=== PATIENT | male | born 1935 | race Caucasian/White ===

== ENCOUNTER 2016-11-04 16:06 | Emergency (ER) | payer MEDICARE, OTHER ==
[~2016-11-04] VITALS: Ht 180.3 cm; Wt 68.0 kg
[2016-11-04 16:11] VITALS: BP 170/89; PULSE 111; RESP 16; TEMP 97.6; O2SAT 94
[2016-11-04] MEDS ORDERED: RISP0.5T2 PO (16:31)
[2016-11-04] MEDS ORDERED: METF500T PO (16:31)
--- NOTE | 2016-11-04 16:49 | PD ---
HPI Chief Complaint: Psychiatric Symptoms Time Seen by Provider: 16:49 Travel History International Travel<30 days: No Contact w/Intl Traveler<30days: No Traveled to known affect area: No History of Present Illness HPI 81-year-old male with history of Alzheimer disease and diabetes presents to the emergency department under Leon act for psychiatric evaluation. Patient is speaking East [place]orese and Greek and not making a lot of sense. I have attempted interpreters, 2 through our [employer] service, both who informed me they are unable to decipher what the patient is saying. Per the Leon act, patient and his got into an argument because he did not want to go to the physician Patient has been increasingly agitated and confused. He was wandering in the street and not properly with police. He was speaking both Greek and [place]orese. His only speaks Greek so the patient is limited Greek however is not demonstrating this. No other symptoms to report at this time. PFSH Past Medical History Alzheimer's Disease: Yes Diabetes: Yes Social History Alcohol Use: No Tobacco Use: No Substance Use: No Allergies-Medications (Allergen,Severity, Reaction): Coded Allergies: No Known Allergies (Unverified , 11/04/16) Reported Meds & Prescriptions Reported Meds & Active Scripts Active Reported Metformin (Metformin HCl) 500 Mg Tab 750 Mg PO BIDPC With meals Risperidone 0.5 Mg Tab 0.5 Mg PO Q12HR Review of Systems Except as stated in HPI: all other systems reviewed are Neg Physical Exam Narrative GENERAL: Well-nourished elderly male patient, sitting up in bed,, speaking Greek and [place]se,, in no acute distress SKIN: Warm and dry. HEAD: Atraumatic. Normocephalic. EYES: Pupils equal and round. No scleral icterus. No injection or drainage. ENT: No nasal bleeding or discharge. Mucous membranes pink and moist. NECK: Trachea midline. No JVD. CARDIOVASCULAR: Tachycardic rate and rhythm. No murmur appreciated. RESPIRATORY: No accessory muscle use. Diminished to auscultation. Breath sounds equal bilaterally. GASTROINTESTINAL: Abdomen soft, non-tender, nondistended. Hepatic and splenic margins not palpable. MUSCULOSKELETAL: No obvious deformities. No clubbing. No cyanosis. No edema. NEUROLOGICAL: Awake and alert. No obvious cranial nerve deficits. Motor grossly within normal limits. Data Data Last Documented VS Vital Signs Date Time Temp Pulse Resp B/P Pulse Ox O2 Delivery O2 Flow Rate FiO2 11/04/16 16:11 97.6 111 16 170/89 94 Room Air Orders Complete Blood Count With Diff (11/04/16 16:34) Comprehensive Metabolic Panel (11/04/16 16:34) Psych Screen (11/04/16 16:34) Urinalysis - C+S If Indicated (11/04/16 16:49) Drug Screen, Random Urine (11/04/16 16:49) Alcohol (Ethanol) (11/04/16 16:49) Chest, Single Ap (11/04/16 ) Labs Laboratory Tests Test 11/04/16 11/04/16 16:01 18:04 White Blood Count 6.5 TH/MM3 Red Blood Count 4.58 MIL/MM3 Hemoglobin 13.9 GM/DL Hematocrit 40.7 % Mean Corpuscular Volume 88.9 FL Mean Corpuscular Hemoglobin 30.5 PG Mean Corpuscular Hemoglobin 34.3 % Concent Red Cell Distribution Width 13.8 % Platelet Count 196 TH/MM3 Mean Platelet Volume 9.2 FL Neutrophils (%) (Auto) 81.7 % Lymphocytes (%) (Auto) 10.0 % Monocytes (%) (Auto) 7.5 % Eosinophils (%) (Auto) 0.4 % Basophils (%) (Auto) 0.4 % Neutrophils # (Auto) 5.3 TH/MM3 Lymphocytes # (Auto) 0.6 TH/MM3 Monocytes # (Auto) 0.5 TH/MM3 Eosinophils # (Auto) 0.0 TH/MM3 Basophils # (Auto) 0.0 TH/MM3 CBC Comment DIFF FINAL Differential Comment Sodium Level 139 MEQ/L Potassium Level 4.4 MEQ/L Chloride Level 102 MEQ/L Carbon Dioxide Level 24.4 MEQ/L Anion Gap 13 MEQ/L Blood Urea Nitrogen 19 MG/DL Creatinine 1.00 MG/DL Estimat Glomerular Filtration 72 ML/MIN Rate Random Glucose 197 MG/DL Calcium Level 9.3 MG/DL Total Bilirubin 0.5 MG/DL Aspartate Amino Transf 15 U/L (AST/SGOT) Alanine Aminotransferase 23 U/L (ALT/SGPT) Alkaline Phosphatase 34 U/L Total Protein 7.8 GM/DL Albumin 4.3 GM/DL Ethyl Alcohol Level LESS THAN 3 MG/DL Urine Color YELLOW Urine Turbidity CLEAR Urine pH 6.0 Urine Specific [place] 1.014 Urine Protein NEG mg/dL Urine Glucose (UA) 300 mg/dL Urine Ketones TRACE mg/dL Urine Occult Blood NEG Urine Nitrite NEG Urine Bilirubin NEG Urine Urobilinogen LESS THAN 2.0 MG/DL Urine Leukocyte Esterase NEG Urine RBC 1 /hpf Urine WBC LESS THAN 1 /hpf Microscopic Urinalysis Comment CULT NOT INDICATED Urine Opiates Screen NEG Urine Barbiturates Screen NEG Urine Amphetamines Screen NEG Urine Benzodiazepines Screen NEG Urine Cocaine Screen NEG Urine Cannabinoids Screen NEG MDM Medical Decision Making Medical Screen Exam Complete: Yes Emergency Medical Condition: Yes Medical Record Reviewed: Yes Differential Diagnosis Acute psychosis versus Alzheimer disease versus dementia versus electrolyte abnormality Narrative Course 1658 attempts to speak with patient via sole skiver on a phone was unsuccessful. Water Quality Manager informs us that the patient is pain does not make sense that she cannot adequately interpret what he is saying. 81-year-old male presents to emergency department under a Leon act for psychiatric evaluation. Patient is speaking both [place]se and Greek. I am told that his is Welsh and speaks only Greek so the patient does understand Greek regularly. He seems to start to answer my questions appropriately but then transitions to [place]se. He is cooperative. We have been unsuccessful with interpretation services. CBC and CMP are without acute concern. Toxicology is negative. Glucosuria 300, trace ketones. Patient initially tachycardic and slightly agitated. Reassessment, heart rate is 89 bpm. He is calm and cooperative. He is medically cleared to undergo psychiatric screening for further evaluation and disposition. Mental health screening discussed with the patient. Psychiatric screen ordered. Diagnosis Primary Impression: Agitation Additional Impressions: Dementia Qualified Code: G30.8 - Alzheimer's dementia with behavioral disturbance, unspecified timing of dementia onset Medical clearance for psychiatric admission Patient Instructions: General Instructions Departure Forms: Tests/Procedures Condition: Stable MalikLinette poolvernon GRIMM Nov 04, 2016 16:49
[2016-11-04 17:02] LABS: AUTOMATED NEUTROPHIL # 5.3 TH/MM3 (1.8-7.7); BASOPHIL % 0.4 % (0.0-2.0); EOSINOPHIL % 0.4 % (0.0-4.0); HEMATOCRIT 40.7 % (39.0-51.0); HEMO FLAGS DIFF FINAL; LYMPHOCYTE # 0.6 TH/MM3 (1.0-4.8); MEAN CELL VOLUME 88.9 FL (80.0-100.0); MEAN CORPUSCULAR HEMOGLOBIN 30.5 PG (27.0-34.0); MEAN CORPUSCULAR HGB CONC 34.3 % (32.0-36.0); MONO % 7.5 % (0.0-8.0); NEUT % 81.7 % (16.0-70.0); PLATELET COUNT 196 TH/MM3 (150-450); RED BLOOD COUNT 4.58 MIL/MM3 (4.50-5.90); RED CELL DISTRIBUTION WIDTH 13.8 % (11.6-17.2); WHITE BLOOD COUNT 6.5 TH/MM3 (4.0-11.0)
[2016-11-04 17:20] LABS: ALT (GPT) 23 U/L (12-78); ANION GAP 13 MEQ/L (5-15); AST (GOT) 15 U/L (15-37); BICARBONATE 24.4 MEQ/L (21.0-32.0); BLOOD UREA NITROGEN 19 MG/DL (7-18); CHLORIDE 102 MEQ/L (98-107); GLOMERULAR FILTRATION RATE 72 ML/MIN (>89); POTASSIUM 4.4 MEQ/L (3.5-5.1); SODIUM (NA) 139 MEQ/L (136-145)
[2016-11-04 17:22] LABS: ALKALINE PHOSPHATASE 34 U/L (45-117); TOTAL BILIRUBIN ADULT 0.5 MG/DL (0.2-1.0)
--- NOTE | 2016-11-04 17:33 | RADRPT ---
EXAM DATE/TIME: 11/04/2016 17:16 [facility] COMPARISON: No previous studies available for comparison. INDICATIONS : Short of breath. MEDICAL HISTORY : None. SURGICAL HISTORY : None. ENCOUNTER: Initial ACUITY: 1 day PAIN SCORE: 0/10 LOCATION: Bilateral chest FINDINGS: A single view of the chest demonstrates the lungs to be symmetrically aerated without evidence of mas s, infiltrate or effusion. The cardiomediastinal contours are unremarkable. Osseous structures are intact. CONCLUSION: Normal examination. Ramon Morales MD on November 04, 2016 at 17:31 Board Certified Radiologist. This report was verified electronically.
[2016-11-04 18:26] LABS: BLOOD, URINE NEG (NEG); COMMENT (UR) CULT NOT INDICATED; CULTURE IF INDICATED CULT NOT INDICATED; GLUCOSE,URINE 300 mg/dL (NEG); KETONE, URINE TRACE mg/dL (NEG); NITRITE,URINE NEG (NEG); URINE COLOR YELLOW (YELLW/STRAW)
[2016-11-04 18:40] LABS: AMPHETAMINE, URINE NEG (NEG); BARBITURATES, URINE NEG (NEG); COCAINE, URINE NEG (NEG)
[2016-11-04 21:00] VITALS: BP 178/92; PULSE 93; RESP 16; O2SAT 98
[2016-11-05 06:17] VITALS: BP 158/82; PULSE 71; RESP 20; O2SAT 98
--- NOTE | 2016-11-05 10:49 | PD ---
History of Present Illness Chief Complaint: Psychiatric Symptoms Time Seen by Provider: 10:45 Travel History International Travel<30 Days: No Contact w/Intl Traveler<30days: No Known affected area: No History of Present Illness: History of Present Illness HPI 81-year-old male with history of Alzheimer disease who was diagnosed in 2014 who presents to the emergency department under Leon act for psychiatric evaluation. As per the report the [police were called to assist in a public incident. The patient's called the police as he was refusing to go to the doctor's appointment that had been scheduled and began to get a little violent. She reported that he walked out of their home and began to wander a round. He was reportedly walking in the middle of the road. Ed provider was unable to communicate with the patient as he was speaking another language. Attempts to interview him with assistance of interpreting service failed as the interpreters were unable to decipher what he was saying. Patient is speaking Tajik and Icelandic and not making a lot of sense. Patient is seen in A pod. Sitter at bedside. Sitter reports he has been restless but not agitated. He is awake, alert and in bed. He is restless. He responds to his name called but then began to speak in another language. I was unable to engage him at all therefore clinical interview is limited. I contacted his via telephone. She reports that he was dx with dementia in 2015. The couple moved to [place] recently. For the past 2 weeks the patient has begun to demonstrate increase in his behaviors including frequent awakening at night with wandering around the house, seeing people in the closets as well as telling her he was going to leave. He has not been evaluated buy a neurologist in [place] but there is an appointment scheduled. The patient's brother who is a physician has provided medication for the patient including Risperdal. She does not believe that the medication is helping at this time. PFSH Past Medical History Alzheimer's Disease: Yes Diabetes: Yes (a1c 7.3 last checked) Patient Takes Glucophage: Yes Seizures: Yes ([facility] 10/02 thinks r/t meds -off meds now) Psychiatric History Psychiatric History Hx Psychiatric Treatment: None reported History of Inpatient Treatment: No Guns or firearms in home: No Social History Retired physician. . Lives with his . Has 3 adult children. Hx Alcohol Use: Yes (occ) Hx Tobacco Use: No Hx Substance Use: No Hx of Substance Use Treatment: No Family Psychiatric History Unable to obtain Allergies-Medications (Allergen,Severity, Reaction): Coded Allergies: No Known Allergies (Unverified , 11/04/16) Reported Meds & Prescriptions Reported Meds & Active Scripts Active Reported Metformin (Metformin HCl) 500 Mg Tab 750 Mg PO BIDPC With meals Risperidone 0.5 Mg Tab 0.5 Mg PO Q12HR Review of Systems ROS Limitations: Poor Historian Psychiatric: COMPLAINS OF: Confusion Exam Alert: Yes [place]: Person Mood: Other (restless) Affect: Other (variable) Speech: Clear, Illogical (as per . Unable to undesrstand as he speaks Tajik) Eye Contact: Normal Memory Intact: Comment (unable to tets) Hallucinations: Visual (reported by his ) Delusions: No Suicidal: Ideation (unable to asses) Homicidal: Ideation (Unable to assess.) Insight/Judgement Poor. Poor MDM Medical Decision Making Medical Record Reviewed: Yes Assessment/Plan At this time does not meet criteria for BA. Will lift. will pick him up Discussed case at length with his and have recommended the following; Melatonin 5- 10 mg po at Hs for sleep She is discussing medications changes with the patient's brother who is also a physician. recommendations include increasing Risperdal. If ineffective switching to Seroquel , and adding Ativan. Patient has appointment next Thursday with neurology instructed re home safety including alarms and locks on doors. Also instructed re [facility] and at home health care Return to hospital if any changes Orders Complete Blood Count With Diff (11/04/16 16:34) Comprehensive Metabolic Panel (11/04/16 16:34) Psych Screen (11/04/16 16:34) Urinalysis - C+S If Indicated (11/04/16 16:49) Drug Screen, Random Urine (11/04/16 16:49) Alcohol (Ethanol) (11/04/16 16:49) Chest, Single Ap (11/04/16 ) Diet Regular Basic (11/05/16 Breakfast) Results Vital Signs Date Time Temp Pulse Resp B/P Pulse Ox O2 Delivery O2 Flow Rate FiO2 11/05/16 06:17 71 20 158/82 98 11/05/16 02:25 20 11/04/16 21:00 93 16 178/92 98 Room Air 11/04/16 16:11 97.6 111 16 170/89 94 Room Air Laboratory Tests Test 11/04/16 11/04/16 16:01 18:04 White Blood Count 6.5 Red Blood Count 4.58 Hemoglobin 13.9 Hematocrit 40.7 Mean Corpuscular Volume 88.9 Mean Corpuscular Hemoglobin 30.5 Mean Corpuscular Hemoglobin 34.3 Concent Red Cell Distribution Width 13.8 Platelet Count 196 Mean Platelet Volume 9.2 Neutrophils (%) (Auto) 81.7 Lymphocytes (%) (Auto) 10.0 Monocytes (%) (Auto) 7.5 Eosinophils (%) (Auto) 0.4 Basophils (%) (Auto) 0.4 Neutrophils # (Auto) 5.3 Lymphocytes # (Auto) 0.6 Monocytes # (Auto) 0.5 Eosinophils # (Auto) 0.0 Basophils # (Auto) 0.0 CBC Comment DIFF FINAL Differential Comment Sodium Level 139 Potassium Level 4.4 Chloride Level 102 Carbon Dioxide Level 24.4 Anion Gap 13 Blood Urea Nitrogen 19 Creatinine 1.00 Estimat Glomerular Filtration 72 Rate Random Glucose 197 Calcium Level 9.3 Total Bilirubin 0.5 Aspartate Amino Transf 15 (AST/SGOT) Alanine Aminotransferase 23 (ALT/SGPT) Alkaline Phosphatase 34 Total Protein 7.8 Albumin 4.3 Ethyl Alcohol Level LESS THAN 3 Urine Color YELLOW Urine Turbidity CLEAR Urine pH 6.0 Urine Specific [place] 1.014 Urine Protein NEG Urine Glucose (UA) 300 Urine Ketones TRACE Urine Occult Blood NEG Urine Nitrite NEG Urine Bilirubin NEG Urine Urobilinogen LESS THAN 2.0 Urine Leukocyte Esterase NEG Urine RBC 1 Urine WBC LESS THAN 1 Microscopic Urinalysis Comment CULT NOT INDICATED Urine Opiates Screen NEG Urine Barbiturates Screen NEG Urine Amphetamines Screen NEG Urine Benzodiazepines Screen NEG Urine Cocaine Screen NEG Urine Cannabinoids Screen NEG Diagnosis Primary Impression: Medical clearance for psychiatric admission Additional Impression: Dementia Psychiatrically Cleared: Yes Departure Forms: Tests/Procedures Patient Instructions: General Instructions Prescriptions Quetiapine (Seroquel)25 Mg Tab25 Mg PO DIRECTED #120 TAB Ref 0 One tablet in the morning 1 tablet in the afternoon, 2 tablets before bed Prov:Kp Montez MD 11/05/16 Lorazepam 0.5 Mg Tab0.5 Mg PO Q12HR PRN (AGITATION) #14 TAB Ref 0 Prov:Kp Montez MD 11/05/16 Disposition: 01 DISCHARGE HOME Condition: Stable Problem Qualifiers Additional Impression: Dementia Qualified Code: G30.8 - Alzheimer's dementia with behavioral disturbance, unspecified timing of dementia onset Sunni Burt Nov 05, 2016 10:49
[2016-11-05] MEDS ORDERED: SERO25TA PO ×2 (15:21→15:23)
[2016-11-05] MEDS ORDERED: LORA-373 PO (15:21)
--- NOTE | 2016-11-05 15:24 | PD ---
Data Data Last Documented VS Vital Signs Date Time Temp Pulse Resp B/P Pulse Ox O2 Delivery O2 Flow Rate FiO2 11/05/16 06:17 71 20 158/82 98 11/04/16 21:00 Room Air 11/04/16 16:11 97.6 Orders Complete Blood Count With Diff (11/04/16 16:34) Comprehensive Metabolic Panel (11/04/16 16:34) Psych Screen (11/04/16 16:34) Urinalysis - C+S If Indicated (11/04/16 16:49) Drug Screen, Random Urine (11/04/16 16:49) Alcohol (Ethanol) (11/04/16 16:49) Chest, Single Ap (11/04/16 ) Diet Regular Basic (11/05/16 Breakfast) Labs Laboratory Tests Test 11/04/16 11/04/16 16:01 18:04 White Blood Count 6.5 TH/MM3 Red Blood Count 4.58 MIL/MM3 Hemoglobin 13.9 GM/DL Hematocrit 40.7 % Mean Corpuscular Volume 88.9 FL Mean Corpuscular Hemoglobin 30.5 PG Mean Corpuscular Hemoglobin 34.3 % Concent Red Cell Distribution Width 13.8 % Platelet Count 196 TH/MM3 Mean Platelet Volume 9.2 FL Neutrophils (%) (Auto) 81.7 % Lymphocytes (%) (Auto) 10.0 % Monocytes (%) (Auto) 7.5 % Eosinophils (%) (Auto) 0.4 % Basophils (%) (Auto) 0.4 % Neutrophils # (Auto) 5.3 TH/MM3 Lymphocytes # (Auto) 0.6 TH/MM3 Monocytes # (Auto) 0.5 TH/MM3 Eosinophils # (Auto) 0.0 TH/MM3 Basophils # (Auto) 0.0 TH/MM3 CBC Comment DIFF FINAL Differential Comment Sodium Level 139 MEQ/L Potassium Level 4.4 MEQ/L Chloride Level 102 MEQ/L Carbon Dioxide Level 24.4 MEQ/L Anion Gap 13 MEQ/L Blood Urea Nitrogen 19 MG/DL Creatinine 1.00 MG/DL Estimat Glomerular Filtration 72 ML/MIN Rate Random Glucose 197 MG/DL Calcium Level 9.3 MG/DL Total Bilirubin 0.5 MG/DL Aspartate Amino Transf 15 U/L (AST/SGOT) Alanine Aminotransferase 23 U/L (ALT/SGPT) Alkaline Phosphatase 34 U/L Total Protein 7.8 GM/DL Albumin 4.3 GM/DL Ethyl Alcohol Level LESS THAN 3 MG/DL Urine Color YELLOW Urine Turbidity CLEAR Urine pH 6.0 Urine Specific [place] 1.014 Urine Protein NEG mg/dL Urine Glucose (UA) 300 mg/dL Urine Ketones TRACE mg/dL Urine Occult Blood NEG Urine Nitrite NEG Urine Bilirubin NEG Urine Urobilinogen LESS THAN 2.0 MG/DL Urine Leukocyte Esterase NEG Urine RBC 1 /hpf Urine WBC LESS THAN 1 /hpf Microscopic Urinalysis Comment CULT NOT INDICATED Urine Opiates Screen NEG Urine Barbiturates Screen NEG Urine Amphetamines Screen NEG Urine Benzodiazepines Screen NEG Urine Cocaine Screen NEG Urine Cannabinoids Screen NEG MDM Supervised Visit with LETY: No Narrative Course Past by charge nurse to reevaluate patient. Patient had been seen by psychiatry and Leon act was listed. would like something for agitation. Apparently there is some breakdown in the relationship with the [facility] staff and the patient's . Reviewed patient's chart. I spoke with the . She isn' t feeling the wrist. Also been helping. He is been on this for a week or 2. Agitation is worse at night with a lot of wandering. I spoke with one of the J planned CON[employer] BIOLOG[employer] PROFESSOR's. The recommendation was to switch to Seroquel, Ativan as needed. Prescriptions were written. They have follow-up with in another week or so. Diagnosis Primary Impression: Agitation Additional Impressions: Medical clearance for psychiatric admission Dementia Qualified Code: G30.8 - Alzheimer's dementia with behavioral disturbance, unspecified timing of dementia onset Patient Instructions: General Instructions, Dementia (ED), Medical Clearance for Psychiatric Care (ED) Departure Forms: Tests/Procedures Additional Instruction: Stop Risperidone. Take Seroquel as directed. Use Ativan as needed. Scripts Quetiapine (Seroquel)25 Mg Tab25 Mg PO DIRECTED #120 TAB Ref 0 One tablet in the morning 1 tablet in the afternoon, 2 tablets before bed Prov:Kp Montez MD 11/05/16 Lorazepam 0.5 Mg Tab0.5 Mg PO Q12HR PRN (AGITATION) #14 TAB Ref 0 Prov:Kp Montez MD 11/05/16 Disposition: 01 DISCHARGE HOME Condition: Stable Kp Montez MD Nov 05, 2016 15:24
[2016-11-05] MEDS ORDERED: LORazepam 0.5 MG TAB PO ONE (15:30)
== END 2016-11-05 16:28 | disposition home or self-care (01) ==
LOC: NEPE 16:06 → NEPA 11-05 16:28
DX: R45.1 Restlessness and agitation (principal); G30.9 Alzheimer's disease, unspecified; F02.81 Dementia in other diseases classified elsewhere, unspecified severity, with behavioral disturbance; Z91.83 Wandering in diseases classified elsewhere; E11.9 Type 2 diabetes mellitus without complications
CPT/HCPCS: 71010; 80053; 80307; 81001; 85025; 99284